=== PATIENT | female | born 1960 | race Caucasian/White ===

== ENCOUNTER → 2016-04-11 | Outpatient (CLI) | payer OTHER ==
--- NOTE | 2016-04-11 17:11 | RADRPT ---
PROCEDURE: XR Chest. CLINICAL INDICATION: Cough. Endometrial hyperplasia. TECHNIQUE: Single frontal view. COMPARISON: None. FINDINGS: The lungs are clear. The heart size is normal. There is no pleural effusion. There is no pneumothorax. IMPRESSION: 1. Normal chest radiograph. RPTAT: QQ .Daniel London MD, Date Time Electronically viewed and signed by .Daniel London MD, on 04/11/2016 17:11 .R/
--- NOTE | 2016-04-15 14:00 | RADRPT ---
Vent Rate: 62 bpm RR Interval: 0 msec W[place] Interval: 154 msec QRS Duration: 88 msec QT Interval: 414 msec QTC Interval: 420 msec P-R-T [place]: 42 - 54 - 53 degrees Normal sinus rhythm Normal ECG Electronically Signed By: Ethan Tee [id number]
== END | disposition home or self-care (01) ==
LOC: RAD 16:24
PROVIDERS: ATTEND Obstetrics & Gynecology
DX: N85.00 Endometrial hyperplasia, unspecified (principal)
CPT/HCPCS: 71010; 93005

== ENCOUNTER 2016-04-16 09:42 | Day surgery (SDC) | payer OTHER ==
[2016-04-12 15:07] VITALS: BMI 35.8
[2016-04-16] VITALS (9 sets, daily range): BP systolic 105–129; BP diastolic 60–72; PULSE 66–80; RESP 16–21; Ht 165.1 cm; Wt 96.0 kg
[~2016-04-16] VITALS: Ht 165.1 cm; Wt 96.0 kg
[~2016-04-16 09:42] MED LIST: CEFAZOLIN 1 GM INJ ONE; ONDANSETRON 4 MG INJ ONE
[2016-04-16] MEDS ORDERED: PROPOFOL 40 ML ONE (12:25)
[2016-04-16] MEDS ORDERED: LIDOCAINE 2% (SDV) 5 ML INJ ONE (12:25)
[2016-04-16] MEDS ORDERED: FENTAnyl 50 MCG/ML VIAL ONE ×2 (12:25→13:09)
[2016-04-16] MEDS ORDERED: FENTAnyl 50 MCG/ML VIAL IV PRN ×3 (12:30)
[2016-04-16] MEDS ORDERED: LABETALOL HCL 20MG INJ IV PRN (12:30)
[2016-04-16] MEDS ORDERED: OXYCODONE/ACETAMINOPHEN (5/325) TAB PO PRN ×2 (12:30)
[2016-04-16] MEDS ORDERED: ONDANSETRON 4 MG INJ IV PRN (12:30)
[2016-04-16] MEDS ORDERED: MEPERIDINE 25 MG INJ IV PRN (12:30)
[2016-04-16] MEDS ORDERED: KETOROLAC 30 MG INJ ONE (12:48)
[2016-04-16] MEDS ORDERED: DEXAMETHASONE 4 MG/ML 1 ML INJ ONE (12:48)
--- NOTE | 2016-04-16 13:34 | OPR ---
DATE OF OPERATION: 04/16/2016 PREOPERATIVE DIAGNOSES: Postmenopausal endometrial thickening. POSTOPERATIVE DIAGNOSIS: Pending pathology report. OPERATION PERFORMED: Diagnostic curettage. SURGEON: Dandre Griffith MD ANESTHESIA: General. ANESTHESIOLOGIST: Dr. Small DETAILS OF THE PROCEDURE: Under satisfactory general anesthesia, the patient was prepped and draped and placed in dorsal lithotomy position. Bimanual pelvic examination: Normal vaginal introitus. Vagina normal. Cervix is small, nulliparous. Uterus normal size for age. Adnexa not palpable. Weighted speculum introduced into the vagina. Anterior cervical lip grasped by Jc tenaculum. Ut erine cavity sounded, measured 8 cm. Endocervical dilatation further advanced with the Hanks dilato r and endometrial curetting with a small sharp curet starting at 12 o'clock counter clockwise perfor med and a very scant amount of tissue obtained which was submitted for the pathology. At the end of the procedure, the patient's vital signs stable. She was transferred to recovery room in a good co ndition. Dictated By: DANDRE GRIFFITH MD HF/NTS Conf#: [id number] DID#: [id number]
[2016-04-16] MEDS ORDERED: KETOROLAC 30 MG INJ IV PRN (18:00)
[2016-04-16] MEDS ORDERED: IBUPROFEN 600 MG TAB PO PRN (18:00)
== END 2016-04-16 14:50 | disposition home or self-care (01) ==
LOC: SDS 09:42
PROVIDERS: ATTEND Obstetrics & Gynecology
DX: R93.8 Abnormal findings on diagnostic imaging of other specified body structures (principal)
CPT/HCPCS: 58120; J0690; J1100; J1885; J2405; J3010